=== PATIENT | female | born 1975 | race Caucasian/White ===

== ENCOUNTER → 2018-07-11 | Outpatient (CLI) | payer OTHER ==
[~2018-07-11] MED LIST: CHOL500025 PO; CYA1000 PO; SERT-184 PO; [UNRECOGNIZED DRUG - CODE] PO
--- NOTE | 2018-07-11 17:18 | RADIOLOGY IMAGING REPORT ---
FACILITY: PATIENT NAME: Yahaira Grande : 1975 MR: [id number] V: [id number] EXAM DATE: ORDERING PHYSICIAN: SHERLEY RAMOS TECHNOLOGIST: Location: [facility] - [place] Patient: Yahaira Grande : 1975 Visit/Account:[id number] Date of Sevice: 07/11/2018 Exam type: CHEST PA LAT History: Wheezing x2 months, previous smoker Comparison: None. Findings: The lungs are free of acute effusions, infiltrates or edema. There is no evidence of a pneumothorax or pneumomediastinum. The cardiac silhouette is normal in size. The trachea is in midline. There a re minimal spondylotic changes in the thoracic spine. IMPRESSION: 1. No acute cardiopulmonary process is seen Report Dictated By: Linda Morrison MD at 07/11/2018 5:14 PM Report E-Signed By: Linda Morrison MD at 07/11/2018 5:15 PM WSN:[email or web address]
== END ==
LOC: RAD 15:50
PROVIDERS: ATTEND Emergency Medicine
DX: R06.2 Wheezing (principal)
CPT/HCPCS: 71046

== ENCOUNTER → 2018-07-13 | Outpatient (CLI) | payer OTHER ==
[2018-07-13 08:47] LABS: PLATELET COUNT, AUTOMATED 216 K/uL (150-450)
[2018-07-13 09:33] LABS: LDL CHOLESTEROL 54 mg/dl
== END ==
LOC: LAB 08:23
PROVIDERS: ATTEND Emergency Medicine
DX: R61 Generalized hyperhidrosis (principal); E80.4 Gilbert syndrome; F41.9 Anxiety disorder, unspecified
CPT/HCPCS: 36415; 82040; 82247; 82306; 82310; 82374; 82435; 82465; 82565; 82607; 82947; 83036; 83718; 84075; 84132; 84155; 84295; 84443; 84450; 84460; 84478; 84520; 85025

== ENCOUNTER → 2018-09-03 | Outpatient (CLI) | payer OTHER ==
[~2018-09-03] MED LIST changes: +BARIUM SULFATE 176 GM BTL PO ONE; +BARIUM SULFATE 340 GM POWD ONE
--- NOTE | 2018-09-03 17:56 | RADIOLOGY IMAGING REPORT ---
[place] [facility] [place] Yahaira Grande : 1975 MR: [id number] V: [id number] EXAM DATE: ORDERING PHYSICIAN: SHERLEY RAMOS TECHNOLOGIST: Location: [facility] Patient: Yahaira Grande : 1975 Visit/Account:[id number] Date of Sevice: 09/03/2018 Exam type: ESOPHAGRAM History: Dysphasia Comparison: None. Findings: Double contrast esophagram was performed with thick and thin barium and air contrast. Fluoroscopic s pot images were obtained over the hypopharynx cervical and thoracic esophagus. Moderate gastroesopha geal reflux was observed. No significant narrowing or mucosal erosion was identified within the esop hagus. The dose area product was 90.92 micro-Bey per meter squared IMPRESSION: 1. Moderate gastroesophageal reflux although no significant narrowing or mucosal erosion identified within the esophagus Report Dictated By: Linda Morrison MD at 09/03/2018 5:49 PM Report E-Signed By: Linda Morrison MD at 09/03/2018 5:51 PM WSN:[email or web address]
== END ==
LOC: RAD 00:59
PROVIDERS: ATTEND Emergency Medicine
DX: K21.9 Gastro-esophageal reflux disease without esophagitis (principal)
CPT/HCPCS: 74220

== ENCOUNTER → 2018-10-07 | Outpatient (CLI) | payer OTHER ==
[~2018-10-07] MED LIST changes: -BARIUM SULFATE 176 GM BTL PO ONE; -BARIUM SULFATE 340 GM POWD ONE; +OMEP40CA48 PO
== END ==
LOC: LAB 09:08
PROVIDERS: ATTEND Emergency Medicine
DX: E53.8 Deficiency of other specified B group vitamins (principal)
CPT/HCPCS: 36415; 82607

== ENCOUNTER 2018-11-08 00:26 | Day surgery (SDC) | payer OTHER ==
[~2018-11-08] VITALS: Ht 165.1 cm; Wt 59.0 kg
[~2018-11-08 00:26] MED LIST changes: +LACT1CAP6 PO; +LINA145C PO
[2018-11-08] MEDS ORDERED: LIDOCAINE MPF 1% 5 ML VIAL ONE (07:50)
[2018-11-08] MEDS ORDERED: PROPOFOL EMUL(*) 10MG/ML 20 ML 20 ML ONE (07:50)
[2018-11-08] MEDS ORDERED: KETAMINE HCL 200 MG/20 ML MDV ONE (07:51)
[2018-11-08 11:18] VITALS: BP 124/78
[2018-11-08] MEDS ORDERED: LIDOCAINE/SOD BICARB 8.4% SYR ID ONE (11:45)
[2018-11-08] MEDS ORDERED: NORMOSOL R SOLN(*) 1000 ML BAG 1,000 ML IV PRN (11:45)
[2018-11-08 11:46] VITALS: BP 96/63
--- NOTE | 2018-11-08 11:57 | Short(Outpt) Discharge Summary ---
Discharge Summary Reason for Hosp/Final Diag: (1) Dysphagia Hospital Course & Plan: pt presented for egd. she tolerated the procedure well and will be discharged home when criteria met. Departure Discharge to: Home Discharge Instructions Home Meds Active Scripts Linaclotide (LINZESS) 145 Mcg Capsule, 145 MCG PO DAILY, #30 CAPSULE Take at least 30 mins before first meal Prov:SHERLEY RAMOS MD 10/17/18 Omeprazole (OMEPRAZOLE) 40 Mg Capsule.dr, 40 MG PO QDAY, #30 CAP 0 Refills Prov:SHERLEY RAMOS MD 10/17/18 Reported Medications Lactobacillus Combination No.4 (PROBIOTIC) 1 Each Capsule, 1 EACH PO, CAPSULE 10/23/18 Cyanocobalamin (Vitamin B-12) (VITAMIN B-12) 1,000 Mcg Tablet, 1000 MCG PO DAILY 07/15/18 Cholecalciferol (Vitamin D3) (VITAMIN D3) Unknown Strength Tablet, PO QDAY 07/01/18 Sertraline Hcl (SERTRALINE HCL) 50 Mg Tablet, 1 TAB PO QDAY, TAB 07/01/18 Diet: Regular Activity: As Tolerated Special Instructions: we will call you in 10 days with results. JASMIN POWELL Nov 08, 2018 11:57
--- NOTE | 2018-11-08 11:59 | NUR ---
1146 SBAR REPORT WAS RECEIVED FROM QUIN HUTCHINS AND DR. DENG. PATIENTS LUNGS ARE CLEAR. SHE WAS MOVED TO 2 LITERS OXYMASK ON ARRIVAL. BOWEL SOUNDS ARE HYPERACTIVE. PATIENT IS SLEEPING AND IS UNRESPONSIVE BUT SHE IS MAINTAINING HER AIRWAY. UNABLE TO ASSESS PAIN OR NAUSEA. 1157 PATIENT CONTINUES TO SLEEP AT THIS TIME
[2018-11-08 12:00] VITALS: BP 111/93
--- NOTE | 2018-11-08 12:06 | NUR ---
1202 PATIENT WOKE UP AND DENIES ANY PAIN. SHE STATES SHE IS FEELING SLIGHTLY NAUSEA. 1203 PATIENT WAS MOVED TO ROOM AIR
[2018-11-08 12:34] VITALS: BP 116/63
[2018-11-08 12:39] VITALS: BP 114/72
--- NOTE | 2018-11-08 13:05 | NUR ---
1239 SANTANA HUTCHINS FINISHED WITH [employer]THO[employer]ICS. PATIENT DENIES ANY DIZZINESS OR LIGHTHEADEDNESS 1240 PATIENT BEGAN GETTING DRESSED 1245 PATIENT WAS ABLE TO VOID WITHOUT DIFFICULTIES 1250 IV WAS DC'D WITH CATH INTACT 1305 PATIENT WAS TAKEN OUT WITH ZAHRAA RN. LUNGS ARE CLEAR. SHE DENIES ANY DIZZINESS OR LIGHTHEADEDNESS. SHE DENIES ANY PAIN. BOWEL SOUNDS WERE HYPERACTIVE. SEE DISCHARGE ASSESSMENT.
== END 2018-11-08 13:05 | disposition home or self-care (01) ==
LOC: OR 00:26
PROVIDERS: ATTEND Surgery
DX: K29.70 Gastritis, unspecified, without bleeding (principal)
CPT/HCPCS: 43239; 43249; 88305; 88313; 88342; C1726; J2001; J2704; J3490